=== PATIENT | male | born 1955 | race Caucasian/White ===

== ENCOUNTER 2017-11-06 08:22 | Emergency (ER) | payer BC, MEDICARE ==
[~2017-11-06] VITALS: Ht 177.8 cm; Wt 74.8 kg
[~2017-11-06 08:22] MED LIST: ALLOPURINOL 10100 M1 PO; FLOMAX0.4 MG PO; HYDROCODON-ACE1 EAC7 PO; MS CONTIN 30 MG30 M1 PO; MS CONTIN15 MG PO; NORVASC2.5 MG PO; PRAVACHOL20 MG PO; TRANDOLAPRIL1 MG PO; ZENPEP DR 20,01 EACH PO
[2017-11-06 08:49] LABS: ABSOLUTE LYMPHOCYTES 1.1 thou/uL (0.8-5.3); ABSOLUTE MONOCYTES 0.8 thou/uL (0.0-1.2); ABSOLUTE NEUTROPHILS 8.2 thou/uL (1.6-8.1); BASOPHILS 0.3 %; HEMATOCRIT 45.2 % (42.0-52.0); HEMOGLOBIN 15.7 gm/dL (14.0-18.0); LYMPHOCYTES 10.8 %; MCH 31.6 pg (26.0-34.0); MCHC 34.8 g/dL (28.0-37.0); MCV 90.9 fL (80.0-100.0); MONOCYTES 7.7 %; MPV 8.7 fl. (7.2-11.1); NUCLEATED RBCS 0 /100WBC; PLATELET COUNT* 207 thou/uL (150-400); POLYS 81.2 %; RBC 4.97 mil/uL (4.50-6.00); WBC 10.1 thou/uL (4.0-11.0)
[2017-11-06 08:58] LABS: URINE BILIRUBIN NEGATIVE (Negative); URINE BLOOD 1+ (Negative); URINE CLARITY CLEAR; URINE COLOR YELLOW; URINE GLUCOSE-RANDOM NEGATIVE (Negative); URINE KETONES TRACE (Negative); URINE LEUKOCYTES-REFLEX NEGATIVE (Negative); URINE NITRITE-REFLEX NEGATIVE (Negative); URINE PROTEIN 1+ (Negative); URINE SPECIFIC GRAVITY >= 1.030 (1.005-1.030); URINE UROBILINOGEN 0.2 E.U./dl (0.2-1.0)
[2017-11-06 09:05] LABS: SQUAMOUS 0-3 Few /LPF (0-3)
[2017-11-06 09:06] LABS: BACTERIA-REFLEX 1-9 Few /HPF (None Seen); CRYSTALS None Seen /LPF (None Seen); FINE GRANULAR CASTS 0-3 Few /LPF (None Seen); HYALINE CASTS 0-3 Few /LPF (None Seen); MUCUS >6 Heavy strn/LPF (None Seen); URINE RBC 3-10 Few /HPF (0-2); URINE WBC-REFLEX 0-5 Rare /HPF (0-5)
[2017-11-06 09:11] LABS: ALBUMIN 4.2 g/dL (3.4-5.0); ALKALINE PHOSPHATASE 62 U/L (46-116); ANION GAP 7 mmol/L (7-16); BUN 17 mg/dL (7-18); CALCIUM 8.9 mg/dL (8.5-10.1); CHLORIDE 98 mmol/L (98-107); CO2 31 mmol/L (21-32); CREATININE 0.9 mg/dL (0.6-1.3); GLUCOSE 139 mg/dL (70-99); LIPASE 125 U/L (73-393); POTASSIUM 3.2 mmol/L (3.5-5.1); SGOT 32 U/L (15-37); SGPT 32 U/L (30-65); SODIUM 136 mmol/L (136-145); TOTAL BILIRUBIN 0.6 mg/dL (<0.1-1.0); TOTAL PROTEIN 8.2 g/dL (6.4-8.2); TROPONIN-I LEVEL <0.06 ng/mL (<0.06)
[2017-11-06] MEDS ORDERED: ZPAK PO (10:30)
[2017-11-06] MEDS ORDERED: PREDNISONE 20 M20 M1 PO (10:30)
[2017-11-06 10:55] VITALS: BP 127/63
--- NOTE | 2017-11-06 20:18 | EKG ---
[place] [address] ELECTROCARDIOGRAM REPORT Name: CHARLEE CABALLERO Room: [facility]#: [id number] Admission: 11/06/17 Attend Phys: Discharge: 11/06/17 Date of : 53 Report #: [id number] THIS REPORT FOR: //name// [facility] ED Test Date: 2017-11-06 Test Time: 08:40:17 Pat Name: CHARLEE CABALLERO Department: Room: Gender: M Clinical Appeals Specialist: Fallon WATSON : 1955 Requested By: Luis E Borja Order Number: [id number] MD: Unruly Samaniego Measurements Intervals [place] Rate: 69 P: 76 RI: 138 QRS: 61 QRSD: 104 T: 50 QT: 402 QTc: 431 Interpretive Statements Sinus rhythm Atrial premature complexes Minimal ST depression, diffuse leads Right atrial enlargement Compared to ECG 07/29/2016 13:49:08 Atrial premature complex(es) now present ST (T wave) deviation still present Electronically Signed On 11-06-2017 20:18:26 LEAD INSPECTOR by Unruly Samaniego [email or web address] <ELECTRONICALLY SIGNED> By: Unruly Samaniego MD, FACC 11/06/172017 0840 0840 Unruly Samaniego MD, [facility] /EPI
== END 2017-11-06 10:55 | disposition home or self-care (01) ==
LOC: M.ERS 08:22
PROVIDERS: Family Medicine
DX: J40 Bronchitis, not specified as acute or chronic (principal); I10 Essential (primary) hypertension; M10.9 Gout, unspecified; N40.0 Benign prostatic hyperplasia without lower urinary tract symptoms; K86.1 Other chronic pancreatitis; F17.210 Nicotine dependence, cigarettes, uncomplicated; Z91.041 Radiographic dye allergy status; Z88.0 Allergy status to penicillin

== ENCOUNTER 2018-07-01 11:54 | Emergency (ER) | payer BC, MEDICARE ==
[~2018-07-01] VITALS: Ht 177.8 cm; Wt 72.6 kg
[~2018-07-01 11:54] MED LIST changes: +PREDNISONE 20 M20 M1 PO; +ZPAK PO
[2018-07-01] MEDS ORDERED: PERCOCET 10-321 EACH PO (12:05)
[2018-07-01] MEDS ORDERED: PHENERGAN 25 MG25 M1 PO (13:02)
[2018-07-01 13:11] VITALS: BP 145/75
== END 2018-07-01 13:12 | disposition home or self-care (01) ==
LOC: M.ERS 11:54
DX: S16.1XXA Strain of muscle, fascia and tendon at neck level, initial encounter (principal); M19.112 Post-traumatic osteoarthritis, left shoulder; I10 Essential (primary) hypertension; M10.9 Gout, unspecified; N40.0 Benign prostatic hyperplasia without lower urinary tract symptoms; F17.210 Nicotine dependence, cigarettes, uncomplicated; Z88.0 Allergy status to penicillin; Z91.041 Radiographic dye allergy status; V49.9XXA Car occupant (driver) (passenger) injured in unspecified traffic accident, initial encounter; Y93.89 Activity, other specified; Y92.89 Other specified places as the place of occurrence of the external cause; Y99.8 Other external cause status

== ENCOUNTER → 2021-08-21 | Outpatient (CLI) | payer OTHER ==
[~2021-08-21] MED LIST changes: +PERCOCET 10-321 EACH PO; +PHENERGAN 25 MG25 M1 PO
== END ==
LOC: M.LAB 07:24
PROVIDERS: ATTEND Internal Medicine Gastroenterology
DX: Z01.812 Encounter for preprocedural laboratory examination (principal); Z20.822 Contact with and (suspected) exposure to COVID-19